=== PATIENT | male | born 1970 | race Caucasian/White ===

== ENCOUNTER 2016-10-24 15:13 | Emergency (ER) | payer BC ==
[~2016-10-24] VITALS: Ht 185.4 cm; Wt 107.1 kg
[~2016-10-24 15:13] MED LIST: ANDROGEL150 GM TD; CENTRUM ULTRA1 EACH PO; ENBREL50 MG/1 ML SC; FISH OIL 1,0001 EAC7 PO; FOLIC ACID1 MG PO; METHADONE10 MG PO; METHOTREXATE2.5 MG PO; ROXICODONE15 MG PO
[2016-10-24 16:19] LABS: HEMATOCRIT 47.1 % (38.0-50.0); MCHC 32.9 G/DL (30.0-36.0); MCV 91.3 FL (86-99); MEAN PLAT.VOLUME 9.9 uM^3 (9.0-12.4); PLATELET COUNT 229 K/uL (156-360); RBC DIS.WIDTH-CV 13.8 % (11.8-14.6); RBC DIS.WIDTH-SD 46.9 % (39-53); RED BLOOD COUNT 5.16 M/uL (4.00-5.50); WHITE BLOOD COUNT 10.7 K/uL (4.1-10.2)
[2016-10-24 16:28] LABS: CHLORIDE 102 mEq/L (99-109); POTASSIUM 4.1 mEq/L (3.7-5.4); SODIUM 137 mEq/L (136-147)
[2016-10-24 16:30] LABS: GLUCOSE 125 mg/dL (70-99)
[2016-10-24 16:31] LABS: ANION GAP 9 MEQ/L (2-14)
[2016-10-24 16:34] LABS: GFR ESTIMATE (CALCULATED) > 59 mL/min/
[2016-10-24 16:35] LABS: UREA NITROGEN (BUN) 14 mg/dL (9-23)
[2016-10-24] MEDS ORDERED: ALEVE220 MG PO (19:47)
[2016-10-24] MEDS ORDERED: CATAPRES0.1 MG PO (20:09)
[2016-10-24] MEDS ORDERED: TRAZODONE HCL50 MG PO (20:09)
[2016-10-24 22:36] VITALS: BP 158/75
== END 2016-10-24 22:38 | disposition home or self-care (01) ==
LOC: EME 15:13
DX: L03.113 Cellulitis of right upper limb (principal); L03.116 Cellulitis of left lower limb; L03.115 Cellulitis of right lower limb; L03.114 Cellulitis of left upper limb; F11.23 Opioid dependence with withdrawal; F17.200 Nicotine dependence, unspecified, uncomplicated
CPT/HCPCS: 80048; 83605; 85027; 87040; 99281; 99284; J3370; J7030